=== PATIENT | female | born 1980 | race Two or more races ===

== ENCOUNTER 2021-04-16 11:08 | Emergency (ER) | payer SELFPAY ==
[2021-04-16 12:01] VITALS: BP 143/96; PULSE 68; RESP 14; TEMP 36.6; O2SAT 100; BMI 31.5
--- NOTE | 2021-04-16 12:21 | ED_ITS ---
HPI - General Adult General: Chief complaint: General Medical Stated complaint: thinks she is in Ty's crisis Time Seen by Provider: 04/16/21 12:08 Source: patient Mode of arrival: ambulatory Limitations: no limitations History of Present Illness: HPI narrative: Patient is a 40-year-old female who has a history of Sheffield's disease who presents to the emergency department with weakness, tremors, and symptoms that she states are typical for her adrenal crisis. She states that she has been under a lot of stress in the last 2 days and thinks that may be contributing to this. She has been driving from [place] and when she got [employer] she felt this way and felt she could not drive anymore. She was therefore brought into the emergency department to be evaluated. Associated symptoms: Reports malaise; Deny chest pain, confusion, cough, diaphoresis, decreased appetite, dyspnea, fevers/chills, headache(s), nausea, rash, palpitations, seizures, short of breath, syncope or vomiting Treatments prior to arrival: none Review of Systems General: Reports: 10 or more systems reviewed and unremarkable except in HPI and below Const: Reports: malaise; Denies: diaphoresis Card: Denies: chest pain, palpitations or syncope Resp: Denies: dyspnea GI: Denies: nausea or vomiting Skin/Breast: Denies: rash Neuro: Denies: headache(s) or confusion Physical Exam Const: COMMON NORMALS: no acute distress, average body habitus, patient oriented x3, no limitations, healthy appearing, alert and well nourished HENMT: COMMON NORMALS: normocephalic, atraumatic and moist oral mucous membranes HEAD & SCALP: normocephalic and atraumatic Neck/C-Spine: COMMON NORMALS: no meningeal signs and no JVD Resp: COMMON NORMALS: normal respiratory effort, No retractions, No use of accessory muscles, clear to auscultation bilaterally and percussion normal AUSCULTATION: clear to auscultation bilaterally PERCUSSION: percussion normal Cardio: COMMON NORMALS: no JVD, regular rate, regular rhythm, S1 normal heart sound present, S2 normal heart sound present, No gallops present (Cardio), No clicks present (Cardio), No murmurs present (Cardio), No rub (Cardio) and Peripheral pulses 2+ throughout RATE: regular rate RHYTHM: regular rhythm HEART SOUNDS: S1 normal heart sound present and S2 normal heart sound present PERIPHERAL PULSES: Peripheral pulses 2+ throughout GI: COMMON NORMALS: Normal to inspection, nondistended, normoactive bowel sounds present, Soft to palpation, non-tender, No hepatosplenomegaly present, no masses and no bruits PALPATION: Yes Soft to palpation and Yes No hepatosplenomegaly present Extremity: COMMON NORMALS: normal to inspection, full ROM, capillary refill normal, no calf tenderness and no pedal edema Neuro: COMMON NORMALS: patient oriented x3 SENSORIUM/ORIENTATION: Yes alert MENINGEAL SIGNS: Yes no meningeal signs Skin: COMMON NORMALS: no rashes or lesions noted, no wounds, turgor normal, no jaundice, no petechiae and no mottling GENERAL SKIN EXAM: no rashes or lesions noted and turgor normal Course Reevaluation(s): Reevaluation #1: Discussed her lab findings with her, unremarkable. Electrolytes all normal, random cortisol normal. She feels better after the intravenous hydrocortisone. She feels comfortable being discharged home. She is advised to increase the dose of her prednisone during periods of stress and follow-up with her chemical dependency professional. She voiced understanding and is in agreement with the plan. Time: 15:00 Vital Signs: Vital signs: Vital Signs Temperature 97.9 F 04/16/21 12:01 Pulse Rate 66 04/16/21 15:35 Respiratory Rate 16 04/16/21 15:35 Blood Pressure 124/90 04/16/21 15:35 Pulse Oximetry 100 04/16/21 15:35 MDM - General Adult MDM Narrative: Medical decision making narrative: 40-year-old female patient with Sheffield's disease who has been under increasing stress in the last few days. She had to drive from [place], [place] to [place] because of a traffic ticket that she was unaware of. Also today her kids started high school. She has been on the road since about 2:30 AM this morning. So since she is under increased stress she started having some symptoms consistent with adrenal crisis including weakness and tremors. In the emergency department there is no obvious laboratory findings consistent with adrenal crisis however symptoms markedly improved following intravenous hydrocortisone. Since her work-up is unremarkable she is discharged home. She already has oral and injectable steroids at home and she is to increase her dose as instructed by her chemical dependency professional. Medical Records: Attestation: I reviewed the patient's medical records. Lab Data: Attestation: I reviewed the patient's lab results. Labs: Lab Results 04/16/21 04/16/21 04/16/21 Range/Units 12:29 12:32 12:32 WBC 7.7 (4.0-10.0) 10^3/ uL RBC 4.71 (4.1-5.3) 10^6/u L Hgb 13.3 (11.5-15.3) g/dL Hct 41.6 (37.0-47.0) % MCV 88.3 (81-99) fL MCH 28.2 (28.0-34.0) pg MCHC 32.0 (30.0-36.0) g/dL RDW 13.9 (12.1-15.1) % Plt Count 301 (130-400) 10^3/c mm MPV 11.1 H (7.4-10.4) fL Neut % (Auto) 63.1 % Lymph % (Auto) 26.0 % Bulloch % (Auto) 7.5 % Eos % (Auto) 2.1 % Baso % (Auto) 1.0 % Neut # (Auto) 4.89 (1.8-7.7) 10^3/u L Lymph # (Auto) 2.0 (0.8-4.8) 10^3/u L Bulloch # (Auto) 0.6 (0.2-0.9) 10^3/u L Eos # (Auto) 0.2 (0.0-0.8) 10^3/u L Baso # (Auto) 0.1 (0.0-0.1) 10^3/u L Nucleated RBC % (a uto) 0 % Nucleated RBCs # 0.0 /100WBC Sodium 140 (136-145) mmol/L Potassium 3.6 (3.5-5.1) mmol/L Chloride 106 (98-107) mmol/L Carbon Dioxide 23 (22-29) mmol/L Anion Gap 14.6 (5-19) BUN 8 (6-20) mg/dL Creatinine 0.6 (0.5-0.9) mg/dL GFR Calculation 111.9 (90-130) mL/min Glucose 86 (65-115) mg/dL POC Glucose 81 (70-110) mg/dL Calculated Osmolal ity 288 (285-295) mOsm/k g Calcium 9.0 (8.5-10.5) mg/dL Total Bilirubin 0.9 (0.15-1.2) mg/dL AST 21 (0-32) U/L ALT 20 (0-33) U/L Alkaline Phosphata se 73 (35-105) IU/L Total Protein 7.4 (6.6-8.7) g/dL Albumin 4.6 (3.5-5.2) g/dL Globulin 2.8 (1.3-4.6) g/dL Random Cortisol 12.95 (2.47-19.5) ug/d L Urine Color (Yellow) Urine Appearance (CLEAR) Urine pH (5-7) Ur Specific Gravit y (1.005-1.030) Urine Protein (Negative) Urine Glucose (UA) (Normal) Urine Ketones (Negative) Urine Blood (Negative) Urine Nitrate (Negative) Urine Bilirubin (Negative) Urine Urobilinogen (Negative) mg/dL Ur Leukocyte Sonya ase (Negative) 04/16/21 Range/Units 12:40 WBC (4.0-10.0) 10^3/ uL RBC (4.1-5.3) 10^6/u L Hgb (11.5-15.3) g/dL Hct (37.0-47.0) % MCV (81-99) fL MCH (28.0-34.0) pg MCHC (30.0-36.0) g/dL RDW (12.1-15.1) % Plt Count (130-400) 10^3/c mm MPV (7.4-10.4) fL Neut % (Auto) % Lymph % (Auto) % Bulloch % (Auto) % Eos % (Auto) % Baso % (Auto) % Neut # (Auto) (1.8-7.7) 10^3/u L Lymph # (Auto) (0.8-4.8) 10^3/u L Bulloch # (Auto) (0.2-0.9) 10^3/u L Eos # (Auto) (0.0-0.8) 10^3/u L Baso # (Auto) (0.0-0.1) 10^3/u L Nucleated RBC % (a uto) % Nucleated RBCs # /100WBC Sodium (136-145) mmol/L Potassium (3.5-5.1) mmol/L Chloride (98-107) mmol/L Carbon Dioxide (22-29) mmol/L Anion Gap (5-19) BUN (6-20) mg/dL Creatinine (0.5-0.9) mg/dL GFR Calculation (90-130) mL/min Glucose (65-115) mg/dL POC Glucose (70-110) mg/dL Calculated Osmolal ity (285-295) mOsm/k g Calcium (8.5-10.5) mg/dL Total Bilirubin (0.15-1.2) mg/dL AST (0-32) U/L ALT (0-33) U/L Alkaline Phosphata se (35-105) IU/L Total Protein (6.6-8.7) g/dL Albumin (3.5-5.2) g/dL Globulin (1.3-4.6) g/dL Random Cortisol (2.47-19.5) ug/d L Urine Color Yellow (Yellow) Urine Appearance Clear (CLEAR) Urine pH 7 (5-7) Ur Specific Gravit y 1.005 (1.005-1.030) Urine Protein Neg (Negative) Urine Glucose (UA) Norm (Normal) Urine Ketones 1+ H (Negative) Urine Blood Neg (Negative) Urine Nitrate Negative (Negative) Urine Bilirubin Neg (Negative) Urine Urobilinogen Norm (Negative) mg/dL Ur Leukocyte Sonya ase Negative (Negative) Discharge Plan Discharge Patient Disposition: Home Clinical Impression: Ty's disease Condition: Stable Prescriptions: Continued hydrocortisone 5 mg tablet See Rx Instructions .ROUTE .COMPLEX RF: 0 midodrine 5 mg tablet 5 mg PO BID RF: 0 atenolol 25 mg tablet 25 mg PO DAILY RF: 0 ergocalciferol (vitamin D2) 50,000 unit Tablet 50,000 unit PO Q7D RF: 0 methocarbamol 750 mg tablet 750 mg PO TID PRN (Reason: Pain) RF: 0 pantoprazole 40 mg tablet,delayed release (DR/EC) 40 mg PO DAILY RF: 0 diclofenac potassium 50 mg tablet 50 mg PO TID RF: 0 fludrocortisone 0.1 mg tablet 0.1 mg PO DAILY RF: 0 Prenate DHA (ferr asp glycin) 18 mg iron-1 mg -300 mg capsule 1 cap PO DAILY RF: 0 Discharge Orders: Discharge ED (Routine); Ordered 04/16/21 Ordered By: Joaquin Galan Discharge Diet: Usual diet Discharge Activity: Increase activity as tolerated Patient Instructions: Sheffield Disease (ED) Activity Restrictions/Additional Instructions: Return for any new or worsening symptoms. Follow-up with your primary care provider and chemical dependency professional as soon as you can get in. Continue steroids and increase the dose as we discussed when you have stressful days. Coding Level of Care Code ED [employer] for [facility] Fwd Exam Comprehensive
[2021-04-16] MEDS: hydrocortisone 100 mg/2 mL SDV IVP (12:34)
[2021-04-16 12:36] VITALS: BP 145/97; PULSE 58; RESP 16; O2SAT 100
[2021-04-16] MEDS: sodium chloride 0.9% 1,000 ML 999 ML IV (12:36)
[2021-04-16 12:46] LABS: Glucose Point of Care 81 mg/dL (70-110)
[2021-04-16 12:58] LABS: Basophils # 0.1 10^3/uL (0.0-0.1); Eosinophils # 0.2 10^3/uL (0.0-0.8); Eosinophils % 2.1 %; Hematocrit 41.6 % (37.0-47.0); Hemoglobin 13.3 g/dL (11.5-15.3); Mean Corpuscular Hemoglobin 28.2 pg (28.0-34.0); Mean Corpuscular Volume 88.3 fL (81-99); Mean Platelet Volume 11.1 fL (7.4-10.4); Monocytes # 0.6 10^3/uL (0.2-0.9); Monocytes % 7.5 %; Neutrophils # 4.89 10^3/uL (1.8-7.7); Neutrophils % 63.1 %; Nucleated Red Blood Cells % 0 %; Platelet Count 301 10^3/cmm (130-400); Red Blood Count 4.71 10^6/uL (4.1-5.3); Red Cell Distribution Width 13.9 % (12.1-15.1); White Blood Count 7.7 10^3/uL (4.0-10.0)
[2021-04-16 12:58] LABS: Add Urine Microscopic? NO; Charge for UA Resulting for Rev
[2021-04-16 13:21] LABS: Bilirubin Urine Neg (Negative); Blood Urine Neg (Negative); Glucose Urine UA Norm (Normal); Ketones Urine 1+ (Negative); Leukocyte Esterase Urine Negative (Negative); Nitrate Urine Negative (Negative); Protein Urine Neg (Negative); Specific Gravity, Urine 1.005 (1.005-1.030); Urine Appearance Clear (CLEAR); Urine Color Yellow (Yellow); Urobilinogen Urine Norm (Negative); pH Urine 7 (5-7)
[2021-04-16 13:25] LABS: Alanine Aminotransferase 20 U/L (0-33); Albumin Level 4.6 g/dL (3.5-5.2); Alkaline Phosphatase 73 IU/L (35-105); Anion Gap 14.6 (5-19); Aspartate Amino Transferase 21 U/L (0-32); Blood Urea Nitrogen 8 mg/dL (6-20); Carbon Dioxide 23 mmol/L (22-29); Chloride 106 mmol/L (98-107); Globulin 2.8 g/dL (1.3-4.6); Glomerular Filtration Rate 111.9 mL/min (90-130); Glucose 86 mg/dL (65-115); Osmolality Calculated 288 mOsm/kg (285-295); Potassium 3.6 mmol/L (3.5-5.1); Sodium 140 mmol/L (136-145); Total Bilirubin 0.9 mg/dL (0.15-1.2); Total Protein 7.4 g/dL (6.6-8.7)
[2021-04-16] MEDS: dextrose 5%-sod chloride 0.9% 1,000 ML 999 ML IV (13:55)
[2021-04-16 13:56] LABS: Cortisol Random 12.95 ug/dL (2.47-19.5)
[2021-04-16 15:35] VITALS: BP 124/90; PULSE 66; RESP 16; O2SAT 100
== END 2021-04-16 15:37 | disposition home or self-care (01) ==
PROVIDERS: Emergency Provider Family Medicine
DX: E27.1 Primary adrenocortical insufficiency (principal)
CPT/HCPCS: 36416; 80053; 81003; 82088; 82533; 82962; 85025; 96361; 96374; 99284; J1720; J7030